=== PATIENT | male | born 1985 | race African-American/Black ===

== ENCOUNTER 2018-01-06 09:02 | Emergency (ER) | payer MEDICAID ==
[~2018-01-06] VITALS: Ht 177.8 cm; Wt 95.2 kg
[2018-01-06] MEDS ORDERED: ROBAXIN-750750 MG PO (10:31)
== END 2018-01-06 10:44 | disposition home or self-care (01) ==
LOC: ED 09:02
DX: S39.012A Strain of muscle, fascia and tendon of lower back, initial encounter (principal); S20.211A Contusion of right front wall of thorax, initial encounter; F17.200 Nicotine dependence, unspecified, uncomplicated; X50.0XXA Overexertion from strenuous movement or load, initial encounter; W18.30XA Fall on same level, unspecified, initial encounter
CPT/HCPCS: 71046; 99283

== ENCOUNTER 2022-02-23 00:57 | Emergency (ER) | payer MEDICAID ==
[~2022-02-23] VITALS: Ht 177.8 cm; Wt 89.4 kg
[~2022-02-23 00:57] MED LIST: ROBAXIN-750750 MG PO
--- OUTSIDE RECORDS SUMMARY | 2022-02-23 01:02 | XMS ---
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 EFemi VISIT COUNT (12 MO.) [address] Cristy Greer 1 TONG Saenz TOTAL 7 NOTE: Visits indicate total known visits. ED/C VISIT TRACKING (12 MO.) 02/23/2022 00:57 [facility] [place] TYPE: Emergency COMPLAINT: - NONSPECIFIC COMPLAINT 12/20/2021 19:01 [facility] [place] TYPE: Emergency DIAGNOSES: - hallucinating - Substance Abuse - Hallucinations - Procedure and treatment not carried out due to patient leaving prior to being seen by health care provider 12/20/2021 06:03 [facility] [place] TYPE: Emergency DIAGNOSES: - Chest Tightness - Nonpsychotic mental disorder, unspecified - Procedure and treatment not carried out due to patient leaving prior to being seen by health care provider - Anxiety 10/12/2021 18:[facility] [place] [facility] DIAGNOSES: - chest pain - Anxiety disorder, unspecified - Chest pain, unspecified 09/22/2021 23:25 [facility] [place] [facility] DIAGNOSES: - Mental Health Evaluation - Unspecified psychosis not due to a substance or known physiological condition - Mental Health - Moderate persistent asthma with (acute) exacerbation - Other stimulant abuse, uncomplicated 09/21/2021 16:37 [facility] [place] [facility]: Emergency DIAGNOSES: - Psychiatric Evaluation - Auditory hallucinations 09/19/2021 08:42 [facility] [place] [facility]: Emergency DIAGNOSES: - Hallucinations - Other stimulant abuse, uncomplicated - Delusional disorders - Unspecified psychosis not due to a substance or known physiological condition - Unspecified abdominal pain INPATIENT VISIT TRACKING (12 MO.) No inpatient visits to display in this time frame [email or web address]
--- NOTE | 2022-02-23 13:40 | EKG ---
[facility] [address] [facility] [place] [address] Signed Normal sinus rhythm Possible Acute pericarditis Abnormal ECG No previous ECGs available Confirmed by LOUIS GARCIA MD ([id number]) on 02/23/2022 1:40:17 PM Electronically Signed By: LOUIS GARCIA MD 02/23/22 1340 PATIENT NAME: MAVIS CARUSO Electrocardiogram DATE OF : 81 PHYSICIAN: LOUIS GARCIA MD REPORT #: [id number] REPORT IS CONFIDENTIAL AND NOT TO BE RELEASED WITHOUT AUTHORIZATION
== END 2022-02-23 02:05 | disposition home or self-care (01) ==
LOC: ED 00:57
DX: R07.9 Chest pain, unspecified (principal); G43.909 Migraine, unspecified, not intractable, without status migrainosus; F17.200 Nicotine dependence, unspecified, uncomplicated
CPT/HCPCS: 36415; 71045; 80053; 84484; 85025; 93005; 93010; 99285-25

== ENCOUNTER 2022-07-13 22:19 | Emergency (ER) | payer MEDICAID ==
[~2022-07-13] VITALS: Ht 177.8 cm; Wt 79.4 kg
--- NOTE | 2022-07-14 20:50 | EKG ---
[facility] [address] [facility] [place], [place] [address] Signed Normal sinus rhythm Normal ECG When compared with ECG of 23-FEB-2022 01:05, No significant change was found Confirmed by BRIAN JOSEPH MD ([id number]) on 07/14/2022 8:50:13 PM Electronically Signed By: BRIAN JOSEPH MD 07/14/222049 PATIENT NAME: MAVIS CARUSO Electrocardiogram DATE OF : 81 PHYSICIAN: BRIAN JOSEPH MD REPORT #: [id number] REPORT IS CONFIDENTIAL AND NOT TO BE RELEASED WITHOUT AUTHORIZATION
== END 2022-07-13 22:59 | disposition home or self-care (01) ==
LOC: ED 22:19
DX: R07.9 Chest pain, unspecified (principal); G43.909 Migraine, unspecified, not intractable, without status migrainosus; F17.200 Nicotine dependence, unspecified, uncomplicated
CPT/HCPCS: 93005; 93010; 99285-25

== ENCOUNTER 2023-05-27 18:47 | Emergency (ER) | payer OTHER ==
[~2023-05-27] VITALS: Ht 177.8 cm; Wt 79.4 kg
--- OUTSIDE RECORDS SUMMARY | ~2023-05-27 | XMS | Continuity of Care Document ---
Demographics + + + | Address | [address] | | | [place] [address] | + + + | Preferred Language | Unknown | + + + | Marital Status | Never | + + + | Caodaism Affiliation | Unknown | + + + | Race | Unknown | + + + | Ethnic Group | Not or | + + + Author + + + | Author | [facility] | + + + | Organization | [facility] | + + + | Address | [address] | | | [place] [address] | + + + | Phone | | + + + Care Team Providers + + + + | Care Low Voltage Electrician Name | Role | Phone | + + + + Unavailable | Unavailable | + + + + Unavailable | Unavailable | + + + + Allergies and Intolerances + + + + + + | date | description | facility | reaction | severity | + + + + + + | (no date) | No Known Drug | [facility] | (no reaction) | (no severity) | | | Allergies | | | | + + + + + + Encounters No information. Functional Status No information. Immunizations No information. Medications No information. Problems + + + + | date | description | facility | + + + + | 2022-02-23 00:00 | Nonspecific chest pain | [facility] | + + + + | 2022-07-13 00:00 | Chronic chest pain | [facility] | + + + + | 2023-05-27 00:00 | Patient left without being | [facility] | | | seen | | + + + + Procedures No information. Results/Labs No information. Social History No information. Vital Signs + + +---------+---------+ | date | measurement | value | units | + + +---------+---------+ | 2022-07-13 00:00 | BMI | 25.1 | kg/m2 | + + +---------+---------+ | 2022-07-13 00:00 | BP_diastolic | 108 | mmHg | + + +---------+---------+ | 2022-07-13 00:00 | BP_systolic | 147 | mmHg | + + +---------+---------+ | 2022-07-13 00:00 | heart_rate | 79 | /min | + + +---------+---------+ | 2022-07-13 00:00 | height_metric | 177.8 | cm | + + +---------+---------+ | 2022-07-13 00:00 | height_standard | 70 | in | + + +---------+---------+ | 2022-07-13 00:00 | o2_saturation | 99 | % | + + +---------+---------+ | 2022-07-13 00:00 | respiration_rate | 17 | /min | + + +---------+---------+ | 2022-07-13 00:00 | temperature_metric | 37.39 | C | | | | | | + + +---------+---------+ | 2022-07-13 00:00 | | 99.3 | F | | | temperature_standar | | | | | d | | | + + +---------+---------+ | 2022-07-13 00:00 | weight_metric | 79.38 | kg | + + +---------+---------+ | 2022-07-13 00:00 | weight_standard | 175 | lb | + + +---------+---------+ | 2023-05-27 00:00 | BMI | 25.1 | kg/m2 | + + +---------+---------+ | 2023-05-27 00:00 | BP_diastolic | 90 | mmHg | + + +---------+---------+ | 2023-05-27 00:00 | BP_systolic | 150 | mmHg | + + +---------+---------+ | 2023-05-27 00:00 | heart_rate | 92 | /min | + + +---------+---------+ | 2023-05-27 00:00 | height_metric | 177.8 | cm | + + +---------+---------+ | 2023-05-27 00:00 | height_standard | 70 | in | + + +---------+---------+ | 2023-05-27 00:00 | o2_saturation | 99 | % | + + +---------+---------+ | 2023-05-27 00:00 | respiration_rate | 18 | /min | + + +---------+---------+ | 2023-05-27 00:00 | temperature_metric | 36.83 | C | | | | | | + + +---------+---------+ | 2023-05-27 00:00 | | 98.3 | F | | | temperature_standar | | | | | d | | | + + +---------+---------+ | 2023-05-27 00:00 | weight_metric | 79.38 | kg | + + +---------+---------+ | 2023-05-27 00:00 | weight_standard | 175 | lb | + + +---------+---------+"
--- OUTSIDE RECORDS SUMMARY | ~2023-05-27 | XMS | Continuity of Care Document ---
Demographics + + + | Address | [address] | | | [place] [address] | + + + | Preferred Language | Unknown | + + + | Marital Status | Never | + + + | Moravian Affiliation | Unknown | + + + | Race | Unknown | + + + | Ethnic Group | Not or | + + + Author + + + | Author | [facility] | + + + | Organization | [facility] | + + + | Address | [address] | | | [place] [address] | + + + | Phone | | + + + Care Team Providers + + + + | Care Tin Flopper Name | Role | Phone | + [...] 2022-02-23 00:00 | Nonspecific chest pain | [facility] | + + + + | 2022-07-13 00:00 | Chronic chest pain | [facility] | + + + + | 2023-05-27 00:00 | Patient left without being | [facility] | | | seen | | + [...]
--- OUTSIDE RECORDS SUMMARY | 2023-05-27 19:06 | XMS ---
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 Brent VISIT COUNT (12 MO.) [address] [place] [address] TOTAL 16 NOTE: Visits indicate total known visits. ED/UCC VISIT TRACKING (12 MO.) 05/27/2023 18:58 TONG Roy TYPE: Emergency COMPLAINT: - GOD RULES/AMS 05/27/2023 15:33 [facility] [place] TYPE: Emergency COMPLAINT: - ALTERED LOC 05/15/2023 08:58 [facility] [place] TYPE: Emergency DIAGNOSES: - Mental disorder, not otherwise specified - mental health - Mental Health Problem 05/11/2023 19:08 [facility] [place] TYPE: Emergency DIAGNOSES: - Strange and inexplicable behavior - Mental Health Problem - psychosis? 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 01/25/2023 [facility] [place] [facility] DIAGNOSES: - Catatonic disorder due to known physiological condition - Encounter for other general examination - Other stimulant abuse, uncomplicated - Altered Mental Status 01/09/2023 19:53 [facility] [place] [facility] DIAGNOSES: - Encounter for other general examination - Mental disorder, not otherwise specified - Other stimulant abuse, uncomplicated - 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 - Mental Health Evaluation 12/30/2022 17:32 [facility] [place] [facility] DIAGNOSES: - Brief psychotic disorder - Encounter for other general examination - Mental disorder, not otherwise specified - Psychiatric Evaluation 12/30/2022 16:41 [facility] [place] [facility] DIAGNOSES: - Altered Mental Status 12/30/2022 09:56 [facility] [place] TYPE: Emergency DIAGNOSES: - Altered mental status, unspecified - Manic Behavior 12/28/2022 04:06 [facility] [place] TYPE: Emergency DIAGNOSES: - Strain of muscle and tendon of back wall of thorax, initial encounter - body pain possible 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 - Generalized Body Aches 10/18/2022 16:26 [facility] [place] TYPE: Emergency DIAGNOSES: - Mild intermittent asthma with (acute) exacerbation - asthma issues, SOB - Shortness of Breath 10/14/2022 06:20 [facility] [place] TYPE: Emergency DIAGNOSES: - Depression, unspecified - Other psychoactive substance abuse, uncomplicated - Anxiety - 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 - Depression 07/13/2022 22:20 [facility] [place] TYPE: Emergency COMPLAINT: - MULTIPLE COMPLAINTS DIAGNOSES: - Chest pain, unspecified - Migraine, unspecified, not intractable, without status migrainosus - Nicotine dependence, unspecified, uncomplicated INPATIENT VISIT TRACKING (12 MO.) No inpatient visits to display in this time frame [email or web address]
[2023-05-27 19:48] LABS: BASOPHILS 0.4 % (0-2); EOSINOPHILS 1.4 % (0-6); HEMATOCRIT 45.5 % (35.0-50.0); LYMPHOCYTES 24.7 % (24-44); MCH 30.1 (27-36); MCHC 32.9 g/dl (30-36); MCV 91.6 fl (81-99); MONOCYTES 9.4 % (0-12); NEUTROPHILS 64.1 % (39-80); PLATELET COUNT 324 K/uL (140-440); RBC 4.97 M/ul (4.3-5.7); RDW 13.3 (10.5-15.0)
[2023-05-27 20:00] VITALS: BP 149/102
[2023-05-27 20:09] LABS: ACETAMINOPHEN 0 ug/mL (10-30); ALBUMIN 4.5 g/dL (3.4-5.0); ALBUMIN/GLOBULIN RATIO 1.29 (1.1-2.4); ALCOHOL, MEDICAL <3 ng/dL (<3); ALKALINE PHOSPHATASE 60 U/L (46-116); ALT (SGPT) 30 U/L (14-59); ANION GAP 11.8 (7-21); AST (SGOT) 21 U/L (15-37); BILIRUBIN, TOTAL 0.7 ng/dL (0.2-1.0); BUN/CREATININE RATIO 12.93 (6.0-28.6); CALCIUM 9.7 mg/dL (8.5-10.1); CARBON DIOXIDE 30 mmol/L (21-32); CHLORIDE 101 mmol/L (98-107); CREATININE, SERUM 1.16 mg/dL (0.70-1.30); GLOMERULAR FILTRATION RATE,EST 82 mL/min (>60); POTASSIUM 3.8 mmol/L (3.5-5.1); SALICYLATE <0.2 mg/dL (2.8-20.0); TSH, 3RD GENERATION 1.062 uIU/mL (0.358-3.740); UREA NITROGEN 15 mg/dL (7-18)
== END 2023-05-27 20:00 | disposition left against medical advice (07) ==
LOC: ED 18:47
PROVIDERS: Family Medicine
DX: F20.9 Schizophrenia, unspecified (principal); F17.200 Nicotine dependence, unspecified, uncomplicated; Z53.29 Procedure and treatment not carried out because of patient's decision for other reasons
CPT/HCPCS: 36415; 80053; 84443; 85025; 99284; G0480

== ENCOUNTER 2023-09-27 09:40 | Emergency (ER) | payer MEDICAID ==
[~2023-09-27] VITALS: Ht 177.8 cm; Wt 88.6 kg
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
[2023-09-27] MEDS ORDERED: PENICILLIN V P500 MG PO (09:58)
[2023-09-27 10:04] VITALS: BP 148/88
== END 2023-09-27 10:05 | disposition home or self-care (01) ==
LOC: ED 09:40
DX: K08.89 Other specified disorders of teeth and supporting structures (principal); F17.200 Nicotine dependence, unspecified, uncomplicated
CPT/HCPCS: 99282

== ENCOUNTER 2023-10-09 06:29 | Emergency (ER) | payer MEDICAID ==
[~2023-10-09] VITALS: Ht 177.8 cm; Wt 88.6 kg
[~2023-10-09 06:29] MED LIST changes: +PENICILLIN V P500 MG PO
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
[2023-10-09 07:02] VITALS: BP 174/101
[2023-10-09] MEDS ORDERED: NARCAN4 MG NAS (07:02)
== END 2023-10-09 07:05 | disposition left against medical advice (07) ==
LOC: ED 06:29
DX: F11.10 Opioid abuse, uncomplicated (principal); F17.200 Nicotine dependence, unspecified, uncomplicated; Z53.29 Procedure and treatment not carried out because of patient's decision for other reasons; Z79.899 Other long term (current) drug therapy
CPT/HCPCS: 80053; 80307; 85025; G0480; J2310

== ENCOUNTER 2023-10-09 10:07 | Emergency (ER) | payer MEDICAID ==
[~2023-10-09] VITALS: Ht 177.8 cm; Wt 88.6 kg
[~2023-10-09 10:07] MED LIST changes: +NARCAN4 MG NAS
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
[2023-10-09 11:15] VITALS: BP 167/94
== END 2023-10-09 11:15 | disposition left against medical advice (07) ==
LOC: ED 10:07
DX: R41.82 Altered mental status, unspecified (principal); F17.200 Nicotine dependence, unspecified, uncomplicated; F11.90 Opioid use, unspecified, uncomplicated; Z53.29 Procedure and treatment not carried out because of patient's decision for other reasons
CPT/HCPCS: 80053; 80307; 85025; 99285-25

== ENCOUNTER 2023-10-09 15:41 | Emergency (ER) | payer MEDICAID ==
[~2023-10-09] VITALS: Ht 177.8 cm; Wt 88.6 kg
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
[2023-10-09 16:49] LABS: BASOPHILS 0.6 % (0-2); EOSINOPHILS 1.7 % (0-6); HEMATOCRIT 45.4 % (35.0-50.0); HEMOGLOBIN 15.6 g/dL (12.0-18.0); LYMPHOCYTES 33.7 % (24-44); MCH 30.4 (27-36); MCHC 34.4 g/dl (30-36); MCV 88.2 fl (81-99); MONOCYTES 7.6 % (0-12); NEUTROPHILS 56.4 % (39-80); PLATELET COUNT 338 K/uL (140-440); RBC 5.15 M/ul (4.3-5.7); RDW 12.9 (10.5-15.0)
[2023-10-09 17:03] LABS: ALBUMIN 4.8 g/dL (3.4-5.0); ALCOHOL, MEDICAL <3 ng/dL (<3); ALKALINE PHOSPHATASE 53 U/L (46-116); ALT (SGPT) 12 U/L (14-59); ANION GAP 15.5 (7-21); AST (SGOT) 19 U/L (15-37); BILIRUBIN, TOTAL 0.7 ng/dL (0.2-1.0); BUN/CREATININE RATIO 12.87 (6.0-28.6); CALCIUM 9.4 mg/dL (8.5-10.1); CARBON DIOXIDE 25 mmol/L (21-32); CHLORIDE 99 mmol/L (98-107); CREATININE, SERUM 1.01 mg/dL (0.70-1.30); GLOMERULAR FILTRATION RATE,EST 96 mL/min (>60); POTASSIUM 3.5 mmol/L (3.5-5.1); UREA NITROGEN 13 mg/dL (7-18)
[2023-10-09 17:18] VITALS: BP 155/97
== END 2023-10-09 17:45 | disposition other institution, planned readmission (95) ==
LOC: ED 15:41
PROVIDERS: Emergency Medicine
DX: F19.90 Other psychoactive substance use, unspecified, uncomplicated (principal); F17.200 Nicotine dependence, unspecified, uncomplicated; Z76.5 Malingerer [conscious simulation]; Z79.899 Other long term (current) drug therapy
CPT/HCPCS: 36415; 80053; 80307; 85025; 96374; 99285-25; G0480; J2310

== ENCOUNTER 2023-10-26 09:59 | Emergency (ER) | payer MEDICAID ==
[~2023-10-26] VITALS: Ht 177.8 cm; Wt 88.6 kg
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
[2023-10-26] MEDS ORDERED: KLOXXADO8 MG NAS (10:51)
[2023-10-26 10:57] VITALS: BP 141/87
== END 2023-10-26 10:58 | disposition home or self-care (01) ==
LOC: ED 09:59
DX: R41.82 Altered mental status, unspecified (principal); G43.909 Migraine, unspecified, not intractable, without status migrainosus; F17.200 Nicotine dependence, unspecified, uncomplicated
CPT/HCPCS: 99284

== ENCOUNTER 2024-02-02 22:29 | Emergency (ER) | payer MEDICAID ==
[~2024-02-02] VITALS: Ht 177.8 cm; Wt 76.0 kg
[~2024-02-02 22:29] MED LIST changes: +KLOXXADO8 MG NAS
[2024-02-02] MEDS ORDERED: NALOXONE HCL 2 MG/2 ML SYR ONE (22:33)
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
[2024-02-02] MEDS ORDERED: NALOXONE HCL 2 MG/2 ML SYR NAS ONE (22:45)
[2024-02-02 23:04] LABS: BASOPHILS 0.5 % (0-2); EOSINOPHILS 2.9 % (0-6); HEMATOCRIT 46.7 % (35.0-50.0); HEMOGLOBIN 15.6 g/dL (12.0-18.0); LYMPHOCYTES 23.3 % (24-44); MCH 30.1 (27-36); MCHC 33.4 g/dl (30-36); MCV 90.2 fl (81-99); MONOCYTES 9.7 % (0-12); NEUTROPHILS 63.6 % (39-80); PLATELET COUNT 335 K/uL (140-440); RBC 5.17 M/ul (4.3-5.7); RDW 14.3 (10.5-15.0)
[2024-02-02 23:17] LABS: ALBUMIN 4.8 g/dL (3.4-5.0); ALBUMIN/GLOBULIN RATIO 1.41 (1.1-2.4); ANION GAP 14.4 (7-21); BILIRUBIN, TOTAL 1.5 ng/dL (0.2-1.0); BUN/CREATININE RATIO 15.45 (6.0-28.6); CALCIUM 9.7 mg/dL (8.5-10.1); CREATININE, SERUM 1.1 mg/dL (0.70-1.30); MAGNESIUM 1.9 mg/dL (1.8-2.4); POTASSIUM 3.4 mmol/L (3.5-5.1); PROTEIN, TOTAL 8.2 g/dL (6.4-8.2)
[2024-02-03 00:40] VITALS: BP 139/87
== END 2024-02-03 00:40 | disposition home or self-care (01) ==
LOC: ED 22:29
PROVIDERS: Family Medicine
DX: T40.411A Poisoning by fentanyl or fentanyl analogs, accidental (unintentional), initial encounter (principal); R40.4 Transient alteration of awareness; F17.200 Nicotine dependence, unspecified, uncomplicated
CPT/HCPCS: 36415; 80053; 83735; 85025; 99284; J2310

== ENCOUNTER 2024-02-08 03:43 | Emergency (ER) | payer MEDICAID ==
[~2024-02-08] VITALS: Ht 177.8 cm; Wt 82.0 kg
[~2024-02-08 03:43] MED LIST changes: +AMOXICILLIN500 MG PO
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
[2024-02-08 05:29] VITALS: BP 153/88
== END 2024-02-08 05:30 | disposition home or self-care (01) ==
LOC: ED 03:43
DX: T68.XXXA Hypothermia, initial encounter (principal); X31.XXXA Exposure to excessive natural cold, initial encounter; G43.909 Migraine, unspecified, not intractable, without status migrainosus; F17.200 Nicotine dependence, unspecified, uncomplicated
CPT/HCPCS: 99283

== ENCOUNTER 2024-02-10 13:46 | Emergency (ER) | payer MEDICAID ==
[~2024-02-10] VITALS: Ht 177.8 cm; Wt 68.8 kg
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
[2024-02-10 14:23] VITALS: BP 129/81
== END 2024-02-10 14:24 | disposition home or self-care (01) ==
LOC: ED 13:46
DX: Z76.0 Encounter for issue of repeat prescription (principal); K08.89 Other specified disorders of teeth and supporting structures; G43.909 Migraine, unspecified, not intractable, without status migrainosus; F17.200 Nicotine dependence, unspecified, uncomplicated
CPT/HCPCS: 99281

== ENCOUNTER 2024-02-11 00:07 | Emergency (ER) | payer MEDICAID ==
[~2024-02-11] VITALS: Ht 177.8 cm; Wt 80.3 kg
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
[2024-02-11] MEDS ORDERED: ALBUTEROL/IPRATROPIUM 3 ML NEB INH ONE (00:15)
[2024-02-11] MEDS ORDERED: ALBUTEROL/IPRATROPIUM 3 ML NEB ONE (00:24)
[2024-02-11] MEDS ORDERED: INHALER, ASSIST DEVICES 1 EACH SPACER MISC ONE (00:45)
[2024-02-11] MEDS ORDERED: ALBUTEROL SULFATE 8 GM HOME.PACK INH ONE (00:45)
[2024-02-11 00:56] VITALS: BP 132/92
== END 2024-02-11 00:58 | disposition home or self-care (01) ==
LOC: ED 00:07
DX: Z76.5 Malingerer [conscious simulation] (principal); F19.10 Other psychoactive substance abuse, uncomplicated; G43.909 Migraine, unspecified, not intractable, without status migrainosus; F17.200 Nicotine dependence, unspecified, uncomplicated
CPT/HCPCS: 99285-25

== ENCOUNTER 2024-03-04 13:19 | Emergency (ER) | payer MEDICAID ==
[~2024-03-04] VITALS: Ht 177.8 cm; Wt 83.6 kg
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
[2024-03-04] MEDS ORDERED: SODIUM CHLORIDE 0.9% 1,000 ML IV PRN (13:30)
[2024-03-04 13:33] LABS: BASOPHILS 0.3 % (0-2); EOSINOPHILS 1.6 % (0-6); HEMOGLOBIN 13.9 g/dL (12.0-18.0); LYMPHOCYTES 19.2 % (24-44); MCV 90.9 fl (81-99); MONOCYTES 7.7 % (0-12); NEUTROPHILS 71.2 % (39-80); PLATELET COUNT 305 K/uL (140-440); RBC 4.62 M/ul (4.3-5.7); RDW 13.5 (10.5-15.0)
[2024-03-04] MEDS ORDERED: LORazepam 2 MG/ML VIAL IV ONE (13:45)
[2024-03-04 13:50] LABS: ALBUMIN 4.1 g/dL (3.4-5.0); ALBUMIN/GLOBULIN RATIO 1.37 (1.1-2.4); ALCOHOL, MEDICAL <3 ng/dL (<3); ALKALINE PHOSPHATASE 52 U/L (46-116); ALT (SGPT) 25 U/L (14-59); ANION GAP 15.5 (7-21); AST (SGOT) 19 U/L (15-37); BILIRUBIN, TOTAL 0.5 ng/dL (0.2-1.0); CALCIUM 8.6 mg/dL (8.5-10.1); CARBON DIOXIDE 27 mmol/L (21-32); CHLORIDE 99 mmol/L (98-107); GLOMERULAR FILTRATION RATE,EST 87 mL/min (>60); POTASSIUM 3.5 mmol/L (3.5-5.1); PROTEIN, TOTAL 7.1 g/dL (6.4-8.2); UREA NITROGEN 12 mg/dL (7-18)
[2024-03-04 14:08] LABS: BILIRUBIN, URINE NEGATIVE (negative); BLOOD/HGB, URINE NEGATIVE (Negative); KETONE, URINE NEGATIVE (Negative); LEUK ESTERASE, URINE NEGATIVE (negative); NITRITE, URINE NEGATIVE (negative)
[2024-03-04 14:23] LABS: AMPHETAMINES, URINE POSITIVE (NEGATIVE); BARBITURATES, URINE NEGATIVE (NEGATIVE); BENZODIAZEPINE, URINE NEGATIVE (NEGATIVE); BUPRENORPHINE, URINE NEGATIVE (NEGATIVE); CANNABINOID, URINE NEGATIVE (NEGATIVE); COCAINE, URINE NEGATIVE (NEGATIVE); ECSTASY, URINE NEGATIVE (NEGATIVE); FENTANYL, URINE NEGATIVE (NEGATIVE); METHADONE, URINE NEGATIVE (NEGATIVE); OPIATES, URINE NEGATIVE (NEGATIVE); OXYCODONE, URINE NEGATIVE (NEGATIVE); PHENCYCLIDINE, URINE NEGATIVE (NEGATIVE)
[2024-03-04 19:25] VITALS: BP 159/90
--- NOTE | 2024-03-07 18:25 | EKG ---
[facility] [address] [facility] [place] [address] Signed Normal sinus rhythm Normal ECG When compared with ECG of 13-JUL-2022 22:17, No significant change was found Confirmed by Johnny Floers MD ([id number]) on 03/07/2024 6:25:42 PM Electronically Signed By: JOHNNY FLORES 03/07/24 1825 PATIENT NAME: SHADYMAVIS Electrocardiogram DATE OF : 81 PHYSICIAN: JOHNNY FLORES REPORT #: [id number] REPORT IS CONFIDENTIAL AND NOT TO BE RELEASED WITHOUT AUTHORIZATION
[2024-05-08] MEDS ORDERED: SUBOXONE 8 MG-1 EAC1 SL (19:19)
== END 2024-03-04 19:25 | disposition home or self-care (01) ==
LOC: ED 13:19
PROVIDERS: Emergency Medicine
DX: R41.82 Altered mental status, unspecified (principal); F15.10 Other stimulant abuse, uncomplicated; G43.909 Migraine, unspecified, not intractable, without status migrainosus; F17.200 Nicotine dependence, unspecified, uncomplicated
CPT/HCPCS: 36415; 51701; 71045; 80053; 80307; 81003; 84484; 85025; 93005; 93010; 99285-25; G0480; J2060; J7030

== ENCOUNTER 2024-03-05 22:20 | Emergency (ER) | payer MEDICAID ==
[~2024-03-05] VITALS: Ht 177.8 cm; Wt 100.0 kg
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
[2024-03-05 22:50] VITALS: BP 147/98
== END 2024-03-05 23:03 | disposition home or self-care (01) ==
LOC: ED 22:20
DX: Z02.89 Encounter for other administrative examinations (principal); F17.200 Nicotine dependence, unspecified, uncomplicated
CPT/HCPCS: 99282

== ENCOUNTER 2024-03-29 00:44 | Emergency (ER) | payer MEDICAID ==
[~2024-03-29] VITALS: Ht 177.8 cm; Wt 81.0 kg
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
[2024-03-29 01:15] VITALS: BP 168/113
[2024-03-29] MEDS ORDERED: LACTATED RINGER'S 1,000 ML IV ONE (01:15)
== END 2024-03-29 01:15 | disposition home or self-care (01) ==
LOC: ED 00:44
DX: F19.10 Other psychoactive substance abuse, uncomplicated (principal); R03.0 Elevated blood-pressure reading, without diagnosis of hypertension; F99 Mental disorder, not otherwise specified; F17.200 Nicotine dependence, unspecified, uncomplicated
CPT/HCPCS: 80053; 80307; 84443; 85025; G0480

== ENCOUNTER 2024-03-31 12:00 | Emergency (ER) | payer MEDICAID ==
[~2024-03-31] VITALS: Ht 177.8 cm; Wt 79.0 kg
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
[2024-03-31 12:27] LABS: BASOPHILS 0.4 % (0-2); EOSINOPHILS 4.2 % (0-6); HEMATOCRIT 49.8 % (35.0-50.0); HEMOGLOBIN 16.8 g/dL (12.0-18.0); MCH 29.9 (27-36); MCHC 33.7 g/dl (30-36); MCV 88.8 fl (81-99); MONOCYTES 10.2 % (0-12); NEUTROPHILS 55.2 % (39-80); PLATELET COUNT 299 K/uL (140-440); RBC 5.61 M/ul (4.3-5.7)
[2024-03-31 12:54] LABS: ALBUMIN 4.6 g/dL (3.4-5.0); ALBUMIN/GLOBULIN RATIO 1.35 (1.1-2.4); ALCOHOL, MEDICAL <3 ng/dL (<3); ALKALINE PHOSPHATASE 58 U/L (46-116); ALT (SGPT) 17 U/L (14-59); ANION GAP 12.4 (7-21); AST (SGOT) 12 U/L (15-37); BUN/CREATININE RATIO 24.29 (6.0-28.6); CALCIUM 9.2 mg/dL (8.5-10.1); CARBON DIOXIDE 29 mmol/L (21-32); CHLORIDE 101 mmol/L (98-107); CREATININE, SERUM 1.07 mg/dL (0.70-1.30); GLOMERULAR FILTRATION RATE,EST 90 mL/min (>60); POTASSIUM 4.4 mmol/L (3.5-5.1); UREA NITROGEN 26 mg/dL (7-18)
[2024-03-31 15:05] LABS: BILIRUBIN, URINE POSITIVE (negative); BLOOD/HGB, URINE TRACE-I (Negative); KETONE, URINE TRACE (Negative); LEUK ESTERASE, URINE NEGATIVE (negative); NITRITE, URINE NEGATIVE (negative); PH, URINE 5.5 (5-7)
[2024-03-31 15:10] LABS: EPITHELIAL CELLS, URINE SQUAMOUS 1+ /lpf (0-1+)
[2024-03-31 15:11] LABS: BACTERIA, URINE 1+ /hpf (negative); CRYSTALS, URINE NONE SEEN (0-1+)
[2024-03-31 15:12] LABS: CASTS, URINE HYALINE 1+ \\lpf; COLLECTION TYPE, URINE CLEAN CATCH; REFLEX CULTURE, URINE No (No)
[2024-03-31 15:18] LABS: AMPHETAMINES, URINE POSITIVE (NEGATIVE); BARBITURATES, URINE NEGATIVE (NEGATIVE); BENZODIAZEPINE, URINE NEGATIVE (NEGATIVE); BUPRENORPHINE, URINE NEGATIVE (NEGATIVE); CANNABINOID, URINE NEGATIVE (NEGATIVE); COCAINE, URINE NEGATIVE (NEGATIVE); ECSTASY, URINE NEGATIVE (NEGATIVE); FENTANYL, URINE NEGATIVE (NEGATIVE); METHADONE, URINE NEGATIVE (NEGATIVE); OPIATES, URINE NEGATIVE (NEGATIVE); OXYCODONE, URINE NEGATIVE (NEGATIVE); PHENCYCLIDINE, URINE NEGATIVE (NEGATIVE)
[2024-03-31 16:34] VITALS: BP 135/103
[2024-05-08] MEDS ORDERED: SUBOXONE 8 MG-1 EAC1 SL (19:19)
== END 2024-03-31 16:33 | disposition home or self-care (01) ==
LOC: ED 12:00
PROVIDERS: Emergency Medicine
DX: E16.2 Hypoglycemia, unspecified (principal); F15.90 Other stimulant use, unspecified, uncomplicated; F17.200 Nicotine dependence, unspecified, uncomplicated
CPT/HCPCS: 36415; 80053; 80307; 81001; 84484; 85025; 99285; G0480